=== PATIENT | male | born 1950 | race Caucasian/White ===

== ENCOUNTER 2016-06-18 14:54 | Emergency (ER) | payer OTHER, MEDICAID ==
[~2016-06-18] VITALS: Ht 167.6 cm; Wt 89.8 kg
--- NOTE | 2016-06-18 14:54 | NUR ---
BROUGHT BACK TO BED #5 AND TRIAGED. REPORT GIVEN TO CRISTHIAN
[2016-06-18 14:55] VITALS: BP 140/96; PULSE 65; RESP 18; TEMP 98.2; O2SAT 19
--- NOTE | 2016-06-18 15:00 | NUR ---
PT. TO ER AAOx4 FROM HOME FOR SUPRAPUBIC PAIN 05/14, STATES THAT IT HAS BEEN ONE MONTH OF URINARY ISSUES, WAS DX WITH UTI TAKING PYRIDIUM, CIPRO, MACROBID TO TREAT UTI HOWEVER THERE IS STILL URINARY FREQUENCY, DENIES SOB, DENIES CHEST PAIN, CLEAR SPEECH, FOLLOWS COMMANDS
--- NOTE | 2016-06-18 15:10 | NUR ---
DR. SMART AT BEDSIDE EXAMINING PT.
[2016-06-18 15:35] LABS: BILIRUBIN,URINE NEGATIVE (NEGATIVE); CLARITY/URINE CLEAR (CLEAR); COLOR,URINE YELLOW (YELLOW); GLUCOSE,URINE NEGATIVE (NEGATIVE); KETONES,URINE NEGATIVE (NEGATIVE); LEUKOCYTE ESTERASE ,URINE NEGATIVE (NEGATIVE); NITRITE, URINE NEGATIVE (NEGATIVE); PROTEIN URINE NEGATIVE (NEGATIVE); UROBILINOGEN,URINE 0.2 (0.2-1.0)
[2016-06-18 15:51] LABS: BLOOD, URINE TRACE (NEGATIVE)
[2016-06-18 15:54] LABS: BACTERIA,URINE FEW /HPF (None Seen); RBC,URINE 0-3 /HPF (0-3); WBC,URINE 0-3 /HPF (0-3)
[2016-06-18 15:55] LABS: MUCUS,URINE None Seen /LPF (None Seen)
--- NOTE | 2016-06-18 16:45 | NUR ---
DR. CHESTER AT BEDSIDE SPEAKING TO PT. IN REGARDS TO PLAN OF CARE
[2016-06-18 17:30] VITALS: BP 129/79; PULSE 65; RESP 18; TEMP 98.2; O2SAT 19
--- NOTE | 2016-06-18 17:30 | NUR ---
Patient given written and verbal discharge instructions and verbalizes understanding. ER MD DR. CHESTER discussed with patient the results and treatment provided. Given copies of tests performed in ER. Patient in stable condition. ID arm band removed. NO RX given. Patient educated on pain management and to follow up with PMD. Pain Scale 0/10 Opportunity for questions provided and answered.
== END 2016-06-18 17:30 | disposition home or self-care (01) ==
LOC: SED 14:54
DX: R10.9 Unspecified abdominal pain (principal); K21.9 Gastro-esophageal reflux disease without esophagitis; I10 Essential (primary) hypertension; E78.5 Hyperlipidemia, unspecified
CPT/HCPCS: 81000-TC; 99285

== ENCOUNTER 2017-05-12 14:37 | Emergency (ER) | payer OTHER, MEDICAID ==
[~2017-05-12] VITALS: Ht 167.6 cm; Wt 87.1 kg
[2017-05-12 14:37] VITALS: BP_SYST 156
[2017-05-12] MEDS ORDERED: OMEP20CA10 PO (14:52)
[2017-05-12] MEDS ORDERED: HYT1 GT (14:52)
[2017-05-12] MEDS ORDERED: NOR10 PO (14:52)
[2017-05-12] MEDS ORDERED: LOVA40TA75 PO (14:52)
[2017-05-12] MEDS ORDERED: GABA-531 PO (14:52)
[2017-05-12] MEDS ORDERED: LORazepam 1 MG TABLET PO ONE (15:00)
[2017-05-12 15:14] LABS: BASOPHILS # (AUTO) 0.1 K/uL (0.0-0.2); BASOPHILS % (AUTO) 1.1 % (0.0-2.0); EOSINOPHILS # (AUTO) 0.1 K/uL (0.0-0.4); EOSINOPHILS % (AUTO) 1.7 % (0.0-4.0); HEMATOCRIT 47.8 % (36-54); LYMPHOCYTES # (AUTO) 2.7 K/uL (1.0-5.5); LYMPHOCYTES % (AUTO) 38.3 % (20.5-51.5); MEAN CORPUSCULAR HEMOGLOBIN 32 pg (27-31); MEAN CORPUSCULAR HGB CONC 34 % (32-36); MEAN CORPUSCULAR VOLUME 95 fL (79.0-98.0); MONOCYTES # (AUTO) 0.5 K/uL (0.0-1.0); MONOCYTES % (AUTO) 7.3 % (1.7-9.3); NEUTROPHILS # (AUTO) 3.8 K/uL (1.8-7.7); NEUTROPHILS % (AUTO) 51.6 % (40.0-70.0); PLATELET COUNT (AUTO) 177 K/uL (130-430); RED BLOOD CELL COUNT(AUTO) 5.04 MIL/uL (4.2-6.2); RED CELL DISTRIBUTION WIDTH 13.1 % (9.0-15.0); WHITE BLOOD COUNT (AUTO) 7.2 K/uL (4.8-10.8)
[2017-05-12 15:32] LABS: CALCIUM 8.9 mg/dL (8.4-11.0); CREATININE 0.75 mg/dL (0.55-1.30); POTASSIUM 3.4 mmol/L (3.5-5.1)
[2017-05-12 15:36] LABS: ALBUMIN 3.9 g/dL (3.4-4.8); TOTAL BILIRUBIN 1.5 mg/dL (0.0-1.0)
[2017-05-12] MEDS ORDERED: ACETAMINOPHEN 500 MG TABLET PO ONE (16:00)
[2017-05-12] MEDS ORDERED: KETOROLAC TROMETHAMINE 60 MG/2 ML VIAL IM ONE (16:15)
[2017-05-12] MEDS ORDERED: MAG HYDROX/AL HYDROX/SIMETH 30 ML, BELLADONNA ALKALOIDS/PHENOBARB 10 ML, LIDOCAINE VISC... PO ONE ×3 (16:15)
[2017-05-12 18:00] VITALS: BP_SYST 133
== END 2017-05-12 18:00 | disposition home or self-care (01) ==
LOC: SED 14:37
DX: F43.20 Adjustment disorder, unspecified (principal); R07.89 Other chest pain; K21.9 Gastro-esophageal reflux disease without esophagitis; I10 Essential (primary) hypertension; E78.5 Hyperlipidemia, unspecified; Z79.899 Other long term (current) drug therapy
CPT/HCPCS: 36415; 71045; 80053; 83880; 84484; 85025; 93005; 96372; 99285; J1885; J2001

== ENCOUNTER 2018-03-20 06:48 | Emergency (ER) | payer OTHER, MEDICAID ==
[~2018-03-20] VITALS: Ht 170.2 cm; Wt 92.5 kg
[2018-03-20 06:48] VITALS: BP_SYST 146
[~2018-03-20 06:48] MED LIST: GABA-531 PO; HYT1 GT; LOVA40TA75 PO; NOR10 PO; OMEP20CA10 PO
[2018-03-20] MEDS ORDERED: NACL 0.9% 1,000 ML IV ONE (07:10)
[2018-03-20] MEDS ORDERED: ASPIRIN 81 MG TAB.CHEW PO ONE (07:15)
[2018-03-20 07:52] LABS: BASOPHILS # (AUTO) 0.1 K/uL (0.0-0.2); BASOPHILS % (AUTO) 1.2 % (0.0-2.0); EOSINOPHILS # (AUTO) 0.4 K/uL (0.0-0.4); EOSINOPHILS % (AUTO) 6.6 % (0.0-4.0); HEMATOCRIT 45.6 % (36-54); LYMPHOCYTES # (AUTO) 1.7 K/uL (1.0-5.5); LYMPHOCYTES % (AUTO) 29.2 % (20.5-51.5); MEAN CORPUSCULAR HEMOGLOBIN 31 pg (27-31); MEAN CORPUSCULAR HGB CONC 33 % (32-36); MEAN CORPUSCULAR VOLUME 95 fL (79.0-98.0); MONOCYTES # (AUTO) 0.7 K/uL (0.0-1.0); PLATELET COUNT (AUTO) 177 K/uL (130-430); RED CELL DISTRIBUTION WIDTH 13.2 % (9.0-15.0); WHITE BLOOD COUNT (AUTO) 5.9 K/uL (4.8-10.8)
[2018-03-20 08:09] LABS: CALCIUM 8.6 mg/dL (8.4-11.0); CREATININE 0.82 mg/dL (0.55-1.30); POTASSIUM 3.7 mmol/L (3.5-5.1)
[2018-03-20 08:18] LABS: ALBUMIN 3.5 g/dL (3.4-4.8)
[2018-03-20 08:50] VITALS: BP_SYST 140
== END 2018-03-20 08:50 | disposition home or self-care (01) ==
LOC: SED 06:48
DX: J40 Bronchitis, not specified as acute or chronic (principal); R07.81 Pleurodynia; K21.9 Gastro-esophageal reflux disease without esophagitis; I10 Essential (primary) hypertension; E78.5 Hyperlipidemia, unspecified; Z79.899 Other long term (current) drug therapy
CPT/HCPCS: 36415; 71045; 80053; 84484; 85025; 86710; 93005; 99284; J7030

== ENCOUNTER 2019-05-03 18:15 | Emergency (ER) | payer OTHER, MEDICAID ==
[~2019-05-03] VITALS: Ht 167.6 cm; Wt 89.8 kg
[~2019-05-03 18:15] MED LIST changes: -OMEP20CA10 PO; +OMEP20CA11 PO
[2019-05-03 19:06] VITALS: BP_SYST 138
[2019-05-03] MEDS ORDERED: IPRATROPIUM/ALBUTEROL SULFATE 3 ML AMPUL.NEB (DUONEB) INH ONE (22:45)
[2019-05-03 23:33] LABS: CALCIUM 8.4 mg/dL (8.4-11.0); CREATININE 0.92 mg/dL (0.55-1.30); POTASSIUM 3.6 mmol/L (3.5-5.1)
[2019-05-03 23:34] LABS: BASOPHILS # (AUTO) 0.1 K/uL (0.0-0.2); BASOPHILS % (AUTO) 1.4 % (0.0-2.0); EOSINOPHILS # (AUTO) 0.3 K/uL (0.0-0.4); EOSINOPHILS % (AUTO) 4.1 % (0.0-4.0); HEMATOCRIT 45.1 % (36-54); HEMOGLOBIN 15.1 g/dL (14.0-18.0); LYMPHOCYTES # (AUTO) 2.3 K/uL (1.0-5.5); LYMPHOCYTES % (AUTO) 32.6 % (20.5-51.5); MEAN CORPUSCULAR HEMOGLOBIN 31 pg (27-31); MEAN CORPUSCULAR HGB CONC 33 % (32-36); MEAN CORPUSCULAR VOLUME 93 fL (79.0-98.0); MONOCYTES # (AUTO) 0.6 K/uL (0.0-1.0); MONOCYTES % (AUTO) 8.9 % (1.7-9.3); NEUTROPHILS # (AUTO) 3.8 K/uL (1.8-7.7); PLATELET COUNT (AUTO) 170 K/uL (130-430); RED BLOOD CELL COUNT(AUTO) 4.85 MIL/uL (4.2-6.2); RED CELL DISTRIBUTION WIDTH 14.4 % (9.0-15.0); WHITE BLOOD COUNT (AUTO) 7.1 K/uL (4.8-10.8)
[2019-05-03 23:41] LABS: ALBUMIN 3.6 g/dL (3.4-4.8); TOTAL BILIRUBIN 0.9 mg/dL (0.0-1.0)
[2019-05-04 01:07] VITALS: BP_SYST 126
== END 2019-05-04 01:07 | disposition home or self-care (01) ==
LOC: SED 18:15
DX: J20.9 Acute bronchitis, unspecified (principal); K21.9 Gastro-esophageal reflux disease without esophagitis; I10 Essential (primary) hypertension; E78.5 Hyperlipidemia, unspecified; Z79.899 Other long term (current) drug therapy
CPT/HCPCS: 36415; 71045; 80053; 85025; 94640; 99284; J7620

== ENCOUNTER 2020-03-08 13:45 | Emergency (ER) | payer OTHER, MEDICAID, SELFPAY ==
[~2020-03-08] VITALS: Ht 170.2 cm; Wt 95.3 kg
[~2020-03-08 13:45] MED LIST changes: -OMEP20CA11 PO; +OMEP20CA15 PO
--- NOTE | 2020-03-08 13:47 | NUR ---
Patient triaged and placed in waiting room. VSS and patient appears in no acute distress at this time. Accompanied by self , awaiting available bed, and MD notified of need for MSE.
[2020-03-08 14:09] VITALS: BP_SYST 124
[2020-03-08] MEDS ORDERED: ACETAMINOPHEN 325 MG TABLET PO ONE (14:15)
--- NOTE | 2020-03-08 14:28 | NUR ---
Pt brought by self, A&Ox4, pt presents to ER with headache, bodyches, fever and sore throat, denies SOB or cough, skin pink and warm, cap refill <3, VSS, respirations even and unlabored, will cont to monitor.
--- NOTE | 2020-03-08 14:29 | NUR ---
Dr Church examining patient in the tent
[2020-03-08 15:25] LABS: PROTHROMBIN TIME 10.4 SECS (9.5-12.5)
[2020-03-08 15:32] LABS: BASOPHILS % (AUTO) 0.7 % (0.0-2.0); EOSINOPHILS % (AUTO) 0.6 % (0.0-4.0); HEMATOCRIT 44.7 % (36-54); HEMOGLOBIN 15.1 g/dL (14.0-18.0); LYMPHOCYTES # (AUTO) 1.3 K/uL (1.0-5.5); MEAN CORPUSCULAR HEMOGLOBIN 31 pg (27-31); MEAN CORPUSCULAR HGB CONC 34 % (32-36); MEAN CORPUSCULAR VOLUME 91 fL (79.0-98.0); MONOCYTES # (AUTO) 0.4 K/uL (0.0-1.0); MONOCYTES % (AUTO) 9.2 % (1.7-9.3); NEUTROPHILS # (AUTO) 2.5 K/uL (1.8-7.7); NEUTROPHILS % (AUTO) 59.5 % (40.0-70.0); PLATELET COUNT (AUTO) 87 K/uL (130-430); RED BLOOD CELL COUNT(AUTO) 4.89 MIL/uL (4.2-6.2); WHITE BLOOD COUNT (AUTO) 4.2 K/uL (4.8-10.8)
[2020-03-08 15:48] LABS: ANION GAP 9 (5-15); CALCIUM 7.5 mg/dL (8.4-11.0); CHLORIDE 103 mmol/L (98-107); CREATININE 0.95 mg/dL (0.55-1.30); GLUCOSE 98 mg/dL (70-99); POTASSIUM 3.2 mmol/L (3.5-5.1); SODIUM SERUM 140 mmol/L (136-145); UREA NITROGEN, BLOOD 10 mg/dL (8-21)
[2020-03-08 15:52] LABS: ALANINE AMINOTRANSFERASE 47 U/L (12-78); ALBUMIN 3.7 g/dL (3.4-4.8); ASPARTATE AMINOTRANSFERASE 39 U/L (10-37); BILIRUBIN,DIRECT 0.2 mg/dL (0.0-0.3); LIPASE 120 U/L (73-393); TOTAL BILIRUBIN 0.6 mg/dL (0.0-1.0)
[2020-03-08 16:37] VITALS: BP_SYST 124
--- NOTE | 2020-03-08 16:40 | NUR ---
Patient given written and verbal discharge instructions and verbalizes understanding. ER MD discussed with patient the results and treatment provided. Patient in stable condition. ID arm band removed. No Rx given. Patient educated on pain management and to follow up with PMD. Pain Scale 2/10 . Opportunity for questions provided and answered. Medication side effect fact sheet provided.
== END 2020-03-08 16:40 | disposition home or self-care (01) ==
LOC: SED 13:45
DX: U07.1 COVID-19 (principal); B34.9 Viral infection, unspecified; I10 Essential (primary) hypertension; K21.9 Gastro-esophageal reflux disease without esophagitis; E78.5 Hyperlipidemia, unspecified; Z79.899 Other long term (current) drug therapy; Z20.828 Contact with and (suspected) exposure to other viral communicable diseases
CPT/HCPCS: 36415; 71045; 80048; 80076; 83690; 83880; 84484; 85025; 85610; 87426; 93005; 99285; C9803; U0003